=== PATIENT | male | born 1990 | race Caucasian/White ===

== ENCOUNTER → 2023-06-03 | Outpatient (CLI) | payer SELFPAY ==
--- NOTE | 2023-06-03 07:53 | CT_ITS ---
STUDY: CT CHEST WITHOUT CONTRAST REASON FOR EXAM: Male, 33 years old. FAMILY HX IN 1ST DEGREE RELATIVE. Cardiac over read examination. RADIATION DOSAGE (If Supplied By Facility): CTDIvol = ( 12.19 ) mGy, DLP = ( 219.42 ) mGycm TECHNIQUE: Transaxial imaging was performed without the administration of intravenous contrast material. Individualized dose optimization techniques were used for this CT. COMPARISON: No relevant priors. FINDINGS: CHEST The lungs are normal. There is no demonstrated pleural abnormality. Normal heart and pericardium. Normal mediastinum. Normal hilar regions. Normal unenhanced pulmonary arteries. Normal aorta arch and descending thoracic aorta. Normal osseous structures. There is no demonstrated abnormality of the visualized upper abdomen. CT/Limited Chest CT Cardiac Only IMPRESSION: Normal unenhanced CT chest T abdomen examination. Electronically Signed: Timmy Mcmillan MD at 14:04 EDT ,
--- NOTE | 2023-06-20 15:50 | CA.SCORE ---
Calcium Scoring Date of Study:: 06/03/23 Indications Indications: FH Coronary Calcium Scoring: High-resolution Computed Tomographic imaging of the chest was performed on [06/03/23 ], with particular attention paid to the coronary arteries. Images from the examination were analyzed for the presence and extent of coronary artery calcification , using coronary calcium quantification software. The patient tolerated the procedure well and there were no complications. The results of the coronary calcification analysis are provided below. Findings Coronary Artery Left Main (LM): 0 Left Anterior Descending (LAD): 0 Left Circumflex (LCX): 0 Right Coronary Artery (RCA): 0 Total Agatston Score: 0 Percentile Rankin% Calcium Scoring Interpretation: Different methods to categorize the overall amount of coronary plaque. Overall amount CAC SIS Visual of coronary plaque P1 Mild -100 <2 1-2 vessels with mild amount of plaque P2 Moderate 101-300 3-4 1-2 vessels with moderate amount, 3 vessels with mild amount of plaque P3 Severe 301-999 5-7 3 vessels with moderate amount, 1 vessel with severe amount of plaque P4 Extensive >1000 >8 2-3 vessels with severe amount of plaque Conclusion: No significant atherosclerotic plaquing noted.
== END | disposition home or self-care (01) ==
LOC: CT 07:52
PROVIDERS: PCP Family Medicine; Referring Provider Family Medicine; Visit Provider Family Medicine
DX: Z00.00 Encounter for general adult medical examination without abnormal findings (principal); Z82.49 Family history of ischemic heart disease and other diseases of the circulatory system
CPT/HCPCS: 75571; 76380

== ENCOUNTER 2023-06-06 17:35 | Emergency (ER) | payer OTHER, SELFPAY ==
[2023-06-06 17:37] VITALS: BP 130/98; PULSE 66; RESP 16; TEMP 36.8; O2SAT 97; BMI 25.7
--- NOTE | 2023-06-06 18:42 | EX.ED.GENINJ ---
HPI <FIDEL Walters - Last Filed: 06/06/23 20:27> History of Present Illness Chief Complaint: Laceration Narrative Narrative: Patient presenting today due to a laceration to his right third finger that he got while he was at work this evening. He reports that he was working with cut pieces of metal when he cut his finger on a piece of the metal. He thinks that his tetanus was updated in 2014 and is not interested in having it updated today. He denies any other injury, he is not on any blood thinners. PFSH <FIDEL Walters - Last Filed: 06/06/23 20:27> [facility] Medical History no medical history Social History Smoking Status: Current every day smoker tobacco type: smokeless tobacco ROS <FIDEL Walters - Last Filed: 06/06/23 20:27> ROS ED Constitutional Constitutional ED: Denies chills or fever(s) Cardiovascular Cardiovascular: Denies chest pain Respiratory/Chest Respiratory/Chest: Denies cough or dyspnea Musculoskeletal Musculoskeletal: Denies arthralgias or myalgias Integumentary Reports laceration Neurologic Neurologic: Denies paresthesias EXAM <FIDEL Walters Last Filed: 06/06/23 20:27> Physical Exam Const Vital Signs: 06/06/23 17:37 Temperature 98.2 F Temperature Source Temporal Pulse Rate 66 Respiratory Rate 16 Blood Pressure 130/98 H Blood Pressure Mean 108 Pulse Ox 97 Oxygen Delivery Method Room Air Positive well nourished, well developed and no apparent distress General Appearance ED: well developed HEENT Reports normocephalic and head/scalp atraumatic Mouth ED: Yes moist mucous membranes normal Eyes PERRL and EOMs intact bilaterally Neck full ROM and supple Chest Wall inspection of chest normal Resp normal respiratory effort and clear to auscultation bilaterally Cardio regular rate and regular rhythm GI soft to palpation, non-tender, non-distended and no masses Back/Spine normal ROM and normal to inspection Extremity full ROM Extremity Narrative: Skin flap to the volar aspect that is about 1 cm to the right third finger, full-thickness, active bleeding. Full flexion and extension at the right MCP, PIP, and DIP joints. Radial pulse 2+, good capillary refill, sensation intact. Neuro oriented x3, CN's II-XII intact bilaterally, moves all extremities, no focal motor deficits and no sensory deficits noted Sensorium / Orientation: awake and alert Psych mental status grossly normal and thought process normal <Dr. González Valle MD - Last Filed: 06/06/23 23:15> Physical Exam Const Vital Signs: 06/06/23 17:37 Temperature 98.2 F Temperature Source Temporal Pulse Rate 66 Respiratory Rate 16 Blood Pressure 130/98 H Blood Pressure Mean 108 Pulse Ox 97 Oxygen Delivery Method Room Air PROC <FIDEL Walters - Last Filed: 06/06/23 20:27> Procedures Lacerations Laceration: Length: 1 cm Depth: Sub Q Shape: Flap Prep: Chlorhexadine Laceration repair: Digital block, Irrigated, Lidocaine and Skin sutures Number of Sutures/Chuyita: 3 Suture Information: Ethilon and Simple MDM <FIDEL Walters - Last Filed: 06/06/23 20:27> MDM MDM Narrative Medical decision making narrative: Patient presenting with a laceration to his right third finger. He accidentally cut his finger on pieces of cut metal while at work. He has a 1 cm skin flap to the volar aspect. This is actively bleeding, it will require suture repair. It was extensively irrigated with normal saline and cleaned with chlorhexidine. 3 stitches were placed. Patient tolerated procedure well. Bacitracin ointment was applied and wound was bandaged. He is to have stitches out in 5 to 7 days. He will be discharged home in stable condition and is comfortable with plan. <Dr. González Valle MD - Last Filed: 06/06/23 23:15> [facility] Treatment and Re-Evaluation Narrative: I have personally performed a face to face assessment of the patient and have reviewed the FERMIN Note. I performed a substantive portion of the visit including all aspects of the following. My tavarez findings include: History: Patient received small circular laceration on the volar tip of finger of the right hand. He keeps having some bleeding from the area. Tetanus up-to-date. Exam: There is a 1 cm almost circumferential flap type laceration. No tendinous injury. Medical Decision Making: This was sutured with 3 interrupted sutures with good cosmesis and hemostasis achieved. Tolerated this well. Suture removal and reasons to follow-up discussed. Discharge Plan Triage Chief Complaint: Laceration ED Midlevel Provider: Adela Peralta ED Provider: González Valle Dx/Rx/DC Orders Clinical Impression: Finger laceration Instructions: ED Laceration: All Closures Stand Alone Forms: ED Work / School Excuse Primary Care Provider: Katherin Gomes Referrals: Katherin Gomes, DO [Primary Care Provider] - 7 Days for suture removal Activity Restrictions/Additional Instructions: Have stitches removed in 5 to 7 days, return for any worsening of your symptoms or signs of infection. Disposition Disposition: Home, Self Care Discharge Date/Time: 06/06/23 20:20
[2023-06-06] MEDS: Lidocaine 1% (20 ml mdv) 20 ML Vial 10 ML INFILT (18:52)
== END 2023-06-06 20:20 | disposition home or self-care (01) ==
PROVIDERS: Emergency Provider Emergency Medicine; PCP Family Medicine; Visit Provider Emergency Medicine
DX: S61.212A Laceration without foreign body of right middle finger without damage to nail, initial encounter (principal); F17.220 Nicotine dependence, chewing tobacco, uncomplicated; X58.XXXA Exposure to other specified factors, initial encounter
CPT/HCPCS: 12001; 99283